=== PATIENT | male | born 1965 | race Caucasian/White ===

== ENCOUNTER 2021-08-07 12:33 | Outpatient (RCR) | payer OTHER, SELFPAY ==
[2021-08-07 11:08] VITALS: BP 103/65; PULSE 84; RESP 20; TEMP 36.8; O2SAT 98
[2021-08-07] MEDS: ACETAMINOPHEN 325 MG TABLET 650 MG PO (11:17)
[2021-08-07] MEDS: diphenhydrAMINE HCl CAP 25 MG CAPSULE PO (11:17)
[2021-08-07] MEDS: FAMOTIDINE 20 MG TABLET PO (11:17)
--- NOTE | 2021-08-07 11:29 | PC.NURSE ---
Vaccinated with Pfizer on 11/16/2020 and 12/07/2020.
--- NOTE | 2021-08-08 15:50 | PC.NURSE ---
Patient called to follow-up regarding COVID antibody infusion on 08/07/2021. Patient states he is feeling better and did not experience any side effects.
== END 2021-08-07 16:00 ==
LOC: AMCINF 12:33
PROVIDERS: PCP Physician Assistant Medical; Referring Provider Physician Assistant Medical; Visit Provider Internal Medicine Hematology & Oncology
DX: U07.1 COVID-19 (principal); I10 Essential (primary) hypertension; E11.9 Type 2 diabetes mellitus without complications
CPT/HCPCS: A9270; M0245; Q0245

== ENCOUNTER 2023-04-06 12:52 | Outpatient (CLI) | payer BC, SELFPAY | END 2023-04-06 12:53 | disposition home or self-care (01) | LOC: ANHAUDASC 12:52 | PROVIDERS: PCP Family Medicine; Visit Provider Otolaryngology | DX: H93.19 Tinnitus, unspecified ear (principal); H90.3 Sensorineural hearing loss, bilateral | CPT/HCPCS: 92557; 92567 ==

== ENCOUNTER 2025-05-24 11:43 | Outpatient (CLI) | payer BC, SELFPAY ==
--- NOTE | ~2025-05-24 | XR_ITS ---
EXAMINATION: XR chest 2V 05/24/2025 12:05 INDICATION: Chest palpitations PROCEDURE: 2 view chest COMPARISON: No prior studies for comparison. FINDINGS: The lungs are clear. The cardiomediastinal silhouette is within normal limits. There are no pleural effusions. There is no pneumothorax suspected. IMPRESSION: 1: NO ACUTE CARDIOPULMONARY DISEASE. Reviewed, dictated and finalized at location O.
== END 2025-05-24 11:44 | disposition home or self-care (01) ==
LOC: GOSHIMG 11:43
PROVIDERS: PCP Physician Assistant Medical; Visit Provider Physician Assistant Medical
DX: R00.2 Palpitations (principal); R23.0 Cyanosis; R42 Dizziness and giddiness
CPT/HCPCS: 71046